=== PATIENT | male | born 1960 | race Caucasian/White ===

== ENCOUNTER 2019-02-21 23:40 | Inpatient (IN) | payer OTHER ==
--- NOTE | 2019-02-22 00:33 | PDOC ---
Attending Attestation - Resident Resident Name: Kyaw Delgadillo - ED Attending Attestation I have performed the following: I have examined & evaluated the patient, The case was reviewed & discussed with the resident, I agree w/resident's findings & plan, Exceptions are as noted - HPI HPI: 02/22/19 00:32 58-year-old male has complaint of worsening chest pain that started this morning resolved and then returned. The pain was getting worse and radiating to his jaw and arm - Physicial Exam PE: 02/22/19 00:33 wnwd 58 yo male p/w chest pain radiating to his arm and jaw head ncat neck supple,no bruits,no jvd lungs cta b/l cvs [id number] abd nontender no flank pain skin warm and dry neuro axox3,ambulatory - Medical Decision Making 02/22/19 00:38 family h/o early cardiac demise of father(40s) Risk factors: htn,IDDM,middle age male plan : aspirin, cardiac enzymes,cbc,comp 02/22/19 00:57 02/22/19 01:04 Medications he takes Toujeo 35 units at nighttime, metformin 500 mg twice daily , Lipitor 10 units at nighttime, 81 baby aspirin daily, nifedipine 90 mg once daily, Ozempic 0.5 sq once weekly 02/22/19 01:20 02/22/19 01:22 first trop is negative cxr napd cbc and chemstries unremarakble with exception [id number] 02/22/19 01:23 plan OBs tele 02/22/19 01:24
--- NOTE | 2019-02-22 00:36 | PDOC ---
History of Present Illness - General Chief Complaint: Chest Pain Stated Complaint: CHEST PAIN Time Seen by Provider: 02/22/19 00:05 - History of Present Illness Initial Comments: 02/22/19 00:31 58 yo M PMH HTN, HLD, IDDM, presenting with chest pain. Patient reports sternal pressure first at 0930, but only lasted 30 seconds initially. However, patient then climbed two flights of stairs to his house and had return of pain. Pain has been worsening through the day, now is radiating into L arm and jaw, 10. Patient never felt this type of pain before. No history of ID or stroke in the past. Specifically denies SOB, N/V, diaphoresis. Past History - Past Medical History Allergies/Adverse Reactions: Allergies Allergy/AdvReac Type Severity Reaction Status Date / Time No Known Allergies Allergy Verified 02/22/19 00:16 Home Medications: Ambulatory Orders Aspirin [ASA -] 81 mg PO DAILY 06/03/14 Atorvastatin Ca [Lipitor] 10 mg PO HS #30 tablet 06/05/14 Insulin Glargine,Hum.rec.anlog [Toujeo Solostar] 35 unit SQ HS 02/22/19 Metformin HCl [Glucophage] 500 mg PO 02/22/19 Nifedipine [Nifedipine ER] 90 mg PO 02/22/19 Semaglutide [Ozempic] 0.5 mg SQ WEEKLY 02/22/19 COPD: No Diabetes: Yes (IDDM) HTN: Yes Hypercholesterolemia: Yes - Surgical History Orthopedic Surgery: Yes (R ROTATOR CUFF) - Immunization History Td Vaccination: Yes TDAP Vaccination: No Immunization Up to Date: Yes - Psycho Social/Smoking Cessation Hx Smoking History: Never smoked Have you smoked in the past 12 months: No Information on smoking cessation initiated: No Hx Alcohol Use: No Drug/Substance Use Hx: No *Physical Exam - Vital Signs Last Vital Signs Temp Pulse Resp BP Pulse Ox 97.8 F 115 H 23 H 117/90 98 02/21/19 23:50 02/21/19 23:50 02/21/19 23:50 02/21/19 23:50 02/21/19 23:50 - Physical Exam Comments: 02/22/19 00:54 Gen: well-developed, well-nourished, mild distress Neuro: AAOX4, CN II-XII intact, FTN intact, EOMI, PERRLA, 5/5 strength, SILT HEENT: atraumatic, normocephalic Neck: trachea midline, supple CV: tachycardic, regular rhythm, no murmurs, rubs, or gallops Pulm: CTA b/l, no wheezing Abd: soft, non-distended, non-tender MSK: full ROM, intact pulses Extr: no edema, no deformities Skin: warm, dry Heart Score/ECG Review - History History: Moderately suspicious - Electrocardiogram EKG: Non specific repolarization disturbance - Age Age: 45-65 - Risk Factors Risk Factors Heart Score: Yes Hx Hypercholesterolemia, Yes Hx Hypertension, Yes Hx Diabetes, Yes Positive family hx of cardiac disease, Yes Hx Obesity Based on the list above the patient has:: >/=3 risk factors or Hx atherosclerotic disease - Troponin Troponin: </= normal limit - Score Heart Score - Total: 5 ED Treatment Course - LABORATORY CBC & Chemistry Diagram: 02/22/19 00:30 02/22/19 00:30 - ADDITIONAL ORDERS Additional order review: Laboratory Results 02/22/19 02/22/19 02/22/19 00:30 00:30 00:30 PT with INR 12.90 INR 1.09 PTT (Actin FS) Sodium 139 Potassium 3.6 Chloride 103 Carbon Dioxide 27 Anion Gap 9 BUN 15.9 Creatinine 1.2 Est GFR (CKD-EPI)AfAm 77.33 Est GFR (CKD-EPI)NonAf 66.72 Random Glucose 282 H Calcium 9.0 Phosphorus 3.0 Magnesium 1.9 Total Bilirubin 0.4 AST 24 ALT 31 Alkaline Phosphatase 94 Troponin I 0.02 Total Protein 7.8 Albumin 3.9 02/22/19 00:30 PT with INR INR PTT (Actin FS) 29.3 Sodium Potassium Chloride Carbon Dioxide Anion Gap BUN Creatinine Est GFR (CKD-EPI)AfAm Est GFR (CKD-EPI)NonAf Random Glucose Calcium Phosphorus Magnesium Total Bilirubin AST ALT Alkaline Phosphatase Troponin I Total Protein Albumin 02/22/19 00:30 RBC 4.77 MCV 82.4 MCHC 33.2 RDW 14.5 MPV 8.5 Neutrophils % 66.2 D Lymphocytes % 28.0 Monocytes % 4.8 Eosinophils % 0.3 D Basophils % 0.7 - RADIOLOGY Radiology Studies Ordered: Category Date Time Status CHEST X-RAY PORTABLE* [RAD] Stat Radiology 02/22/19 00:22 Taken - Medications Given in the ED: ED Medications Discontinued Medications Generic Name Dose Route Start Last Admin Trade Name Rolando PRN Reason Stop Dose Admin Aspirin 325 mg 02/22/19 00:40 02/22/19 00:45 Asa - PO 02/22/19 00:41 325 mg ONCE ONE Administration Medical Decision Making - Medical Decision Making 02/22/19 00:33 58 yo M with risk factors, presenting with chest pain. - CBC, CMP, trop - EKG - CXR - ctm EKG normal sinus at 113 bpm, ST depressions in V4 and V5 not present in prior. 02/22/19 01:29 WBC 13, initial trop negative, CXR without acute pathology. Will admit patient to tele obs. Discharge - Discharge Information Problems reviewed: Yes Clinical Impression/Diagnosis: Chest pain - Follow up/Referral Referrals: Fariba Victor [Primary Care Provider] - - Patient Discharge Instructions - Post Discharge Activity
[2019-02-22 00:40] LABS: BASO % 0.7 % (0-2.0); EOS % 0.3 % (0-4.5); HEMATOCRIT 39.3 % (35.4-49); MCH 27.3 pg (25.7-33.7); MCHC 33.2 g/dl (32.0-35.9); MEAN CELL VOLUME 82.4 fl (80-96); MEAN PLT VOLUME 8.5 fl (7.5-11.1); MONO % 4.8 % (3.8-10.2); NEUT % 66.2 % (42.8-82.8); PLATELET COUNT 311 K/MM3 (134-434); RBC 4.77 M/mm3 (4.00-5.60); RDW 14.5 % (11.9-15.9)
[2019-02-22] MEDS ORDERED: ASPIRIN 325 MG TABLET PO ONE (00:40)
[2019-02-22] MEDS ORDERED: ASPIRIN 325 MG ENTERIC COATED TABLET (FP) ONE (00:44)
[2019-02-22 01:04] LABS: INR 1.09 (0.83-1.09); PROTHROMBIN TIME (PATIENT) 12.9 SEC (9.7-13.0)
[2019-02-22 01:19] LABS: MAGNESIUM 1.9 mg/dL (1.8-2.4)
[2019-02-22 01:21] LABS: ALBUMIN 3.9 g/dl (3.4-5.0); BILIRUBIN,TOTAL 0.4 mg/dL (0.2-1); BLOOD UREA NITROGEN 15.9 mg/dL (7-18); CREATININE 1.2 mg/dL (0.55-1.3); POTASSIUM 3.6 mmol/L (3.5-5.1); TOT PROT 7.8 g/dl (6.4-8.2)
--- NOTE | 2019-02-22 02:29 | PN ---
Teaching Attending Note Name of Resident: Shannon Edward ATTENDING PHYSICIAN STATEMENT I saw and evaluated the patient. I reviewed the resident's note and discussed the case with the resident. I agree with the resident's findings and plan as documented. SUBJECTIVE: 58-year-old man with history of hypertension, dyslipidemia, insulin-dependent diabetes presenting with chest pain which started at 9:30 AM and lasted only a minute, returned after he was climbing a flight of stairs. Pain has worsened throughout the day and radiates to left arm and jaw. Currently chest pain has improved. Denied any shortness of breath, nausea or vomiting, or excessive sweating. Patient's father was reported to have CABG performed at age 52. OBJECTIVE: Last Vital Signs Temp Pulse Resp BP Pulse Ox 97.8 F 80 16 120/74 96 02/21/19 23:50 02/22/19 02:08 02/22/19 02:08 02/22/19 02:08 02/22/19 02:08 GENERAL: Well developed, well nourished. Awake and alert. No acute distress. HEENT: Normocephalic, atraumatic. PERRLA, EOMI. No conjunctival pallor. Sclera are non- icteric. Moist mucous membranes. Oropharynx is clear. NECK: Supple. Full ROM. No JVD. Carotid pulses 2+ and symmetric, without bruits. No thyromegaly. No lymphadenopathy. CARDIOVASCULAR: Regular rate and rhythm. No murmurs, rubs, or gallops. Distal pulses are 2+ and symmetric. PULMONARY: No evidence of respiratory distress. Lungs clear to auscultation bilaterally. No wheezing, rales or rhonchi. ABDOMINAL: Soft. Non-tender. Non-distended. No rebound or guarding. No organomegaly. Normoactive bowel sounds. MUSCULOSKELETAL Normal range of motion at all joints. No bony deformities or tenderness. No CVA tenderness. EXTREMITIES: No cyanosis. No clubbing. No edema. No calf tenderness. SKIN: Warm and dry. Normal capillary refill. No rashes. No jaundice. PSYCHIATRIC: Cooperative. Good eye contact. Appropriate mood and affect. Abnormal Lab Results 02/22/19 02/22/19 00:30 00:30 WBC 13.0 H Absolute Neuts (auto) 8.6 H Random Glucose 282 H Chest x-ray reviewed EKG reviewed ASSESSMENT AND PLAN: Chest painappears to be stable angina, was worse with physical exertion.Patient is at high risk for CAD given his positive family history. Telemetry observation Trend troponins Echo Cardiac stress test Supplemental oxygen as needed Cardiology evaluation Nitroglycerin as needed if recurrent chest pain #Leukocytosisno source of infection identified Monitor CBC off antibiotic
--- NOTE | 2019-02-22 03:25 | HP ---
CHIEF COMPLAINT: Chest Pain PCP: Dr. Victor HISTORY OF PRESENT ILLNESS: Pt is a 58 y/o M w/ pmhx of HTN, Type 2 DM, and hyperlipedimia presenting to ED with chest pain that began yesterday morning. Pt reports he first experienced a chest pain yesterday morning around 9am when going up the stairs which improved with rest. Later he experienced similar chest pain while walking to mail box and the pain improved with rest. At night while resting, the pt experienced worsening tightening and pressure like chest pain with radiation to L arm and his jaw. The patient tried to take a baby aspirin but the pain did not resolve. Pt rates pain as 5-6/10. Pt also experienced CLAYTON. Pt denies SOB, fever, chills, palpitations, changes in vision, abd pain, urinary changes or bowel changes. Pt reports he stopped taking Aspirin 81mg a few months ago as recommended by one of his doctors, does not recall why. He curretly takes no antiplatelet medication. Pt had unremarkable ECHO and Stress test in 2014. Fhx: Mother: DM; Father: Stoke, Triple Bypass, DM, HTN, and Hyperlipedemia ER course was notable for: (1) ASA 325 x1 (2) EKG with sinus tachycardia (115) ST depressions in v4, v5, QTc 445 (3) Troponin negative X1 Recent Travel: denies PAST MEDICAL HISTORY: HTN, Type 2 DM, Hyperlipedimia PAST SURGICAL HISTORY: 2 L shoulder arthroscopy, 1 L shoulder arthroscopy, R inguinal hernia repair, and removal of 2 cysts on his back Social History: Smoking: denies Alcohol: socially Drugs: denies Occupation: OR nurse Residence: Lives with , 2 children and 1 grandchild Allergies Latex- pt reports it gives him hives HOME MEDICATIONS: Home Medications Medication Instructions Recorded Aspirin [ASA -] 81 mg PO DAILY 06/03/14 Atorvastatin Ca [Lipitor] 10 mg PO HS #30 tablet 06/05/14 Insulin Glargine,Hum.rec.anlog 35 unit SQ HS 02/22/19 [Mahesh Marie] Metformin HCl [Glucophage] 500 mg PO DAILY 02/22/19 Nifedipine [Nifedipine ER] 90 mg PO DAILY 02/22/19 Semaglutide [Ozempic] 0.5 mg SQ WEEKLY 02/22/19 REVIEW OF SYSTEMS CONSTITUTIONAL: Absent: fever, chills, diaphoresis, generalized weakness, malaise, loss of appetite, weight change HEENT: Absent: rhinorrhea, nasal congestion, throat pain, throat swelling, difficulty swallowing, mouth swelling, ear pain, eye pain, visual changes CARDIOVASCULAR: chest pain- with exertion and with rest, tachycardia (pt says she measured his HR and BP prior to coming to hospital, reports it was 118 and 124/70), cp radiates to L arm and jaw Absent: , syncope, palpitations, irregular heart rate, lightheadedness, peripheral edema RESPIRATORY: Absent: cough, shortness of breath, dyspnea with exertion, orthopnea, wheezing, stridor, hemoptysis GASTROINTESTINAL: Absent: abdominal pain, abdominal distension, nausea, vomiting, diarrhea, constipation, melena, hematochezia GENITOURINARY: Absent: dysuria, frequency, urgency, hesitancy, hematuria, flank pain, genital pain MUSCULOSKELETAL: Absent: myalgia, arthralgia, joint swelling, back pain, neck pain SKIN: Absent: rash, itching, pallor HEMATOLOGIC/IMMUNOLOGIC: Absent: easy bleeding, easy bruising, lymphadenopathy, frequent infections ENDOCRINE: Absent: unexplained weight gain, unexplained weight loss, heat intolerance, cold intolerance NEUROLOGIC: headache, Absent: focal weakness or paresthesias, dizziness, unsteady gait, seizure, mental status changes, bladder or bowel incontinence PSYCHIATRIC: Absent: anxiety, depression, suicidal or homicidal ideation, hallucinations. PHYSICAL EXAMINATION Vital Signs - 24 hr 02/21/19 02/22/19 02/22/19 23:50 02:08 03:06 Temperature 97.8 F Pulse Rate 115 H Pulse Rate [ 80 Radial] Respiratory 23 H 16 Rate Blood Pressure 117/90 Blood Pressure 120/74 [Right Arm] O2 Sat by Pulse 98 96 96 Oximetry (%) GENERAL: Awake, alert, and fully oriented, in no acute distress. HEAD: Normal with no signs of trauma. EYES: Pupils equal, round and reactive to light, extraocular movements intact, sclera anicteric, conjunctiva clear. No lid lag. EARS, NOSE, THROAT: Ears normal, nares patent, oropharynx clear without exudates. Moist mucous membranes. NECK: Normal range of motion, supple without lymphadenopathy, JVD, or masses. LUNGS: Breath sounds equal, clear to auscultation bilaterally. No wheezes, and no crackles. No accessory muscle use. HEART: Regular rate and rhythm, normal S1 and S2 without murmur, rub or gallop. ABDOMEN: Soft, nontender, not distended, normoactive bowel sounds, no guarding, no rebound, no masses. No hepatomegaly or splenomegaly. MUSCULOSKELETAL: Normal range of motion at all joints except L shoulder which had decreased ROM and weakness compared to right, pt states its chronic. No bony deformities or tenderness. No CVA tenderness. UPPER EXTREMITIES: 2+ pulses, warm, well-perfused. No cyanosis. No clubbing. No peripheral edema. LOWER EXTREMITIES: 2+ pulses, warm, well-perfused. No calf tenderness. No peripheral edema. NEUROLOGICAL: Cranial nerves II-XII intact. Normal speech. PSYCHIATRIC: Cooperative. Good eye contact. Appropriate mood and affect. SKIN: Warm, dry, normal turgor, no rashes or lesions noted, normal capillary refill. Laboratory Results - last 24 hr 02/22/19 02/22/19 02/22/19 00:30 00:30 00:30 WBC 13.0 H RBC 4.77 Hgb 13.0 Hct 39.3 MCV 82.4 MCH 27.3 MCHC 33.2 RDW 14.5 Plt Count 311 MPV 8.5 Absolute Neuts (auto) 8.6 H Neutrophils % 66.2 D Lymphocytes % 28.0 Monocytes % 4.8 Eosinophils % 0.3 D Basophils % 0.7 Nucleated RBC % 0 PT with INR INR PTT (Actin FS) 29.3 Sodium 139 Potassium 3.6 Chloride 103 Carbon Dioxide 27 Anion Gap 9 BUN 15.9 Creatinine 1.2 Est GFR (CKD-EPI)AfAm 77.33 Est GFR (CKD-EPI)NonAf 66.72 POC Glucometer Random Glucose 282 H Calcium 9.0 Phosphorus Magnesium Total Bilirubin 0.4 AST 24 ALT 31 Alkaline Phosphatase 94 Troponin I Total Protein 7.8 Albumin 3.9 02/22/19 02/22/19 02/22/19 00:30 00:30 02:51 WBC RBC Hgb Hct MCV MCH MCHC RDW Plt Count MPV Absolute Neuts (auto) Neutrophils % Lymphocytes % Monocytes % Eosinophils % Basophils % Nucleated RBC % PT with INR 12.90 INR 1.09 PTT (Actin FS) Sodium Potassium Chloride Carbon Dioxide Anion Gap BUN Creatinine Est GFR (CKD-EPI)AfAm Est GFR (CKD-EPI)NonAf POC Glucometer 197 Random Glucose Calcium Phosphorus 3.0 Magnesium 1.9 Total Bilirubin AST ALT Alkaline Phosphatase Troponin I 0.02 Total Protein Albumin ASSESSMENT/PLAN: Pt is a 58 y/o M w/ pmhx of HTN, Type 2 DM, and hyperlipedimia presenting to ED with chest pain that began yesterday morning, both with exertion and now at rest. Pain is radiating to his L arm and jaw. # CP- pt reports pain both with exertion and at rest, consistent with unstable angina. Pt is at high risk for CAD given family history. Initial troponin in ED negative. - Tele obs - ASA 81 daily - trend troponins - A1C, TSH, Lipid panel - echo - Cardiology consultation, Dr. Campos, appreciate recommendations - consider stress test - NPO incase pt to go for stress test tomorrow - supplemental O2 PRN - nitroglycerin prn for recurrent CP # Leukocytosis- pt without source of infection, not currently complaining of any symptoms aside from CP - monitor CBC off abx #DM - BGM ACHS - ISS #FEN -no fluids for now - replete PRN - NPO until decision made about stress test then low fat/ low sodium/ diabetic diet #PPx - DVT: Heparin TID # Dispo: admit to tele obs, possibly stress test in AM Visit type - Emergency Visit Emergency Visit: Yes ED Registration Date: 02/22/19 Care time: The patient presented to the Emergency Department on the above date and was hospitalized for further evaluation of their emergent condition. - New Patient This patient is new to me today: Yes Date on this admission: 02/22/19 - Critical Care Critical Care patient: No ATTENDING PHYSICIAN STATEMENT I saw and evaluated the patient. I reviewed the resident's note and discussed the case with the resident. I agree with the resident's findings and plan as documented. SUBJECTIVE: OBJECTIVE: ASSESSMENT AND PLAN:
[2019-02-22 05:13] VITALS: BMI 30.9
[2019-02-22] MEDS ORDERED: HEPARIN NA (PORCINE) 5,000 UNITS/ML 1ML VIAL SQ SCH (06:00)
[2019-02-22] MEDS: INSULIN SLIDING SCALE (NOVOLOG) 1 VIAL SQ SCH ×4 (06:04→22:35)
[2019-02-22 06:28] LABS: BASO % 0.4 % (0-2.0); EOS % 0.2 % (0-4.5); HEMATOCRIT 37.2 % (35.4-49); HEMOGLOBIN 12.7 GM/dL (11.7-16.9); LYMPH % 36.2 % (8-40); MCH 27.9 pg (25.7-33.7); MCHC 34.2 g/dl (32.0-35.9); MEAN CELL VOLUME 81.6 fl (80-96); MEAN PLT VOLUME 8.3 fl (7.5-11.1); MONO % 5.1 % (3.8-10.2); NEUT % 58.1 % (42.8-82.8); PLATELET COUNT 299 K/MM3 (134-434); RBC 4.55 M/mm3 (4.00-5.60); RDW 14.4 % (11.9-15.9); WHITE BLOOD COUNT 10.3 K/mm3 (4.0-10.0)
[2019-02-22 07:21] LABS: ALBUMIN 3.7 g/dl (3.4-5.0); BILIRUBIN,TOTAL 0.9 mg/dL (0.2-1); BLOOD UREA NITROGEN 14.8 mg/dL (7-18); CALCIUM 9.1 mg/dL (8.5-10.1); MAGNESIUM 2.1 mg/dL (1.8-2.4); PHOSPHOROUS 3.7 mg/dL (2.5-4.9); POTASSIUM 3.4 mmol/L (3.5-5.1); TOT PROT 7.4 g/dl (6.4-8.2)
[2019-02-22] MEDS ORDERED: HEPARIN NA (PORCINE) 5,000 UNITS/ML 1ML VIAL IVPUSH PRN ×2 (07:44)
[2019-02-22] MEDS ORDERED: HEPARIN NA (PORCINE) 5,000 UNITS/ML 1ML VIAL IVPUSH ONE (07:46)
[2019-02-22] MEDS: HEPARIN - 25,000 UNIT in SODIUM CHLORIDE 495 ML IV SCH (08:22)
[2019-02-22] MEDS: ASPIRIN 81 MG CHEWABLE TABLETS PO SCH (09:15)
--- NOTE | 2019-02-22 09:23 | EKG ---
Test Reason : Blood Pressure : / mmHG Vent. Rate : 071 BPM Atrial Rate : 071 BPM P-R Int : 178 ms QRS Dur : 090 ms QT Int : 420 ms P-R-T Axes : 038 -16 -02 degrees QTc Int : 456 ms NORMAL SINUS RHYTHM NORMAL ECG WHEN COMPARED WITH ECG OF 22-FEB-2019 08:10, NO SIGNIFICANT CHANGE WAS FOUND Confirmed by MD Kohli Edward ([id number]) on 02/22/2019 9:22:43 AM Referred By[facility] Confirmed By:Matt Kohli MD
[2019-02-22] MEDS ORDERED: LISINOPRIL 5 MG TABLET (FP) PO SCH (10:00)
[2019-02-22] MEDS: metoPROLOL SUCCINATE 25 MG TAB.SR.24H (FP) PO SCH ×2 (10:14→22:35)
[2019-02-22] MEDS: LOSARTAN POTASSIUM 50 MG TABLET (FP) PO SCH (10:14)
[2019-02-22] MEDS: CLOPIDOGREL BISULFATE 75 MG TABLET (FP) PO SCH (10:14)
--- NOTE | 2019-02-22 10:53 | CON.CARD ---
Consult Consult Specialty:: cardiology Reason for Consultation:: NSTEMI - History of Present Illness History of Present Illness: 58 yo M PMH HTN, HLD, IDDM, presenting with chest pain. Patient reports sternal pressure first at 0930, but only lasted 30 seconds initially. However, patient then climbed two flights of stairs to his house and had return of pain. Pain has been worsening through the day, now is radiating into L arm and jaw, 09/27. Patient never felt this type of pain before. No history of UT or stroke in the past. Specifically denies SOB, N/V, diaphoresis. He is on Axempic weekly injection for DM, as well as insulin. Seveal years ago, he contemplated gastric bypass surgery; eventually, he lost 25 lbs on his own without the procedure. He walks several blocks most days at a moderate pace, and walks a few flights of stairs daily. He had had not chest heaviness or pain until this weekend. His dod had Thursday. On Thursday, he felt depressed. Wlaking up the stairs at home, he had mild central chest heaviness that caused him to sit down after one fligth; it went away after a few minutes. It recurred in the afternoon while climbing stairs, then became moderately severe that night while again gong upstairs, with extension to the jaw and left arm; the pain did not go awasy when he rested, and he then was driven by his the the [facility]. 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 - History Source History Provided By: Patient, Medical Record Limitations to Obtaining History: No Limitations - Past Medical History Cardio/Vascular: Yes: HTN, Hyperlipdemia, Other (father had UT in his 40s) - Past Surgical History Additional Surgical History: 2 cysts removed from his back - Alcohol/Substance Use Hx Alcohol Use: Yes - Smoking History Smoking history: Never smoked Have you smoked in the past 12 months: No Home Medications - Allergies Allergies/Adverse Reactions: Allergies Allergy/AdvReac Type Severity Reaction Status Date / Time No Known Allergies Allergy Verified 02/22/19 00:16 - Home Medications Home Medications: Ambulatory Orders Aspirin [ASA -] 81 mg PO DAILY 06/03/14 Atorvastatin Ca [Lipitor] 10 mg PO HS #30 tablet 06/05/14 Insulin Glargine,Hum.rec.anlog [Mahesh Marie] 35 unit SQ HS 02/22/19 Metformin HCl [Glucophage] 500 mg PO DAILY 02/22/19 Nifedipine [Nifedipine ER] 90 mg PO DAILY 02/22/19 Semaglutide [Ozempic] 0.5 mg SQ WEEKLY 02/22/19 Family Medical History Family Hx Cardiac Disorders: Father (CVA; CABG in his 50s; age 57) Vital Signs: Vital Signs Temperature 98.4 F 02/22/19 08:00 Pulse Rate 75 02/22/19 08:00 Respiratory Rate 18 02/22/19 08:45 Blood Pressure 157/94 02/22/19 08:00 O2 Sat by Pulse Oximetry (%) 97 02/22/19 08:45 - Other Data Labs, Other Data: CBC, BMP 02/22/19 05:20 02/22/19 05:20 INR, PTT INR 1.09 (0.83-1.09) 02/22/19 00:30 Troponin, BNP 02/22/19 02/22/19 00:30 05:20 Troponin I 0.02 1.91 H* Troponin, BNP 02/22/19 02/22/19 00:30 05:20 Troponin I 0.02 1.91 H* Problem List - Problems (1) NSTEMI (non-ST elevated myocardial infarction) Assessment/Plan: TNI 0.02-->1.2. EKG: sinus tachycardia. Telemetry: NSR; rare PVCs. Plan: Agree with metoprolol ACEI (or ARB), ASA, high dose atorvastatin (80 mg daily); IV heparin. Pt had been on meloxicam; was told to avoid all non-aspirin NSAIDs. Ideally start an SGLP-2 inhibitor for DM (e.g. Jardience). Follow EKG and TNI serally. ECHO for LVEF, wall motion, valve status. Keep K>3.5--4.5 Keep Mg 2.0-2.4 Keep PO4 2.5-4.9. Code(s): I21.4 - NON-ST ELEVATION (NSTEMI) MYOCARDIAL INFARCTION (2) Diabetes Assessment/Plan: start SGLP 2 inhibitor. On ARB. Code(s): E11.9 - TYPE 2 DIABETES MELLITUS WITHOUT COMPLICATIONS (3) Hyperlipidemia Code(s): E78.5 - HYPERLIPIDEMIA, UNSPECIFIED (4) Hypertension Code(s): I10 - ESSENTIAL (PRIMARY) HYPERTENSION (5) Obese Code(s): E66.9 - OBESITY, UNSPECIFIED
--- NOTE | 2019-02-22 11:26 | EKG ---
Test Reason : Blood Pressure : / mmHG Vent. Rate : 115 BPM Atrial Rate : 115 BPM P-R Int : 168 ms QRS Dur : 082 ms QT Int : 322 ms P-R-T Axes : 044 012 077 degrees QTc Int : 445 ms SINUS TACHYCARDIA NONSPECIFIC ST AND T WAVE ABNORMALITY ABNORMAL ECG WHEN COMPARED WITH ECG OF 29-JUL-2017 08:45, VENT. RATE HAS INCREASED BY [address] NOW DEPRESSED IN ANTEROLATERAL LEADS Confirmed by Ric Coley MD ([id number]) on 02/22/2019 11:26:10 AM Referred By: Confirmed By:Ric Coley MD
[2019-02-22] MEDS ORDERED: POTASSIUM CHLORIDE ORAL LIQUID 20 MEQ/15 ML PO ONE (11:45)
--- NOTE | 2019-02-22 13:16 | PN ---
Teaching Attending Note Name of Resident: Sobeida Trevino ATTENDING PHYSICIAN STATEMENT I saw and evaluated the patient. I reviewed the resident's note and discussed the case with the resident. I agree with the resident's findings and plan as documented. SUBJECTIVE: No fever or chills. no CLAYTON , no CP , no SOB, no N/V. No palpitations . he was told to stop aspirin 3 months ago. never had a GI bleed OBJECTIVE: NAD, MMM, awake, alert, oriented CV: RRR, no MRG, No JVD Lungs: CATB Abd: soft, NT, ND, NL BS. Neg hepatojugular reflux Ext: no edema or erythema on upper or lower extremities. ASSESSMENT AND PLAN: 58 y/o gentleman with h/o HTN, DM , HLP, who presented with CP and was found to have NSTEMI 1- NSTEMI: No signs of heart failure. - started heparin gtt - start Lopressor and resume home losartan - aspirin daily - add plavix. - tele monitoring. - cont statin - EKG from ER and one in am reviewed. NO ST or TW changes. L axis. deviation - Old stress and echo reviewed. fixed small inferior area. Cath was recommended then. - case was d/w Dr. Simental, depending on his next trop , he might be transferred tomorrow for a cath. 2- H/o DM: on long acting insulin q HS and Semiglutide weekly. - cont SSI here. sugar on lower side - Hold long acting since he might be NPO tomorrow . sugar is low - Consider Invokana or other SGLT-2 inhibitor as outpt 3- H/o HTn: cont losartan , and now metoprolol hold HCTZ. Resume nifedipine if needed 4- DVT pX: on heparin gtt
--- NOTE | 2019-02-22 13:43 | EKG ---
Test Reason : Blood Pressure : / mmHG Vent. Rate : 069 BPM Atrial Rate : 069 BPM P-R Int : 178 ms QRS Dur : 086 ms QT Int : 414 ms P-R-T Axes : 037 -18 -04 degrees QTc Int : 443 ms NORMAL SINUS RHYTHM MINIMAL VOLTAGE CRITERIA FOR LVH, MAY BE NORMAL VARIANT BORDERLINE ECG WHEN COMPARED WITH ECG OF 22-FEB-2019 08:11, NO SIGNIFICANT CHANGE WAS FOUND Confirmed by MD Rishi, Federico ([id number]) on 02/22/2019 1:42:53 PM Referred By: Ela COATES Confirmed By:Federico Blackwell MD
--- NOTE | 2019-02-22 14:17 | PN ---
Physical Exam: SUBJECTIVE: Patient seen and examined in the morning. No acute events overnight. Patient had no complaints of chest pain, shortness of breath, headache, fever, chills, abdominal pain, nausea, vomiting, diarrhea. OBJECTIVE: Vital Signs Period Temp Pulse Resp BP Sys/Medel Pulse Ox Last 24 Hr 97.8 F-98.5 F 75-115 16-23 117-157/74-94 95-98 GENERAL: The patient is awake, alert, and fully oriented, in no acute distress. HEAD: Normal with no signs of trauma. EYES: PERRL, extraocular movements intact, sclera anicteric, conjunctiva clear. No ptosis. ENT: Moist mucous membranes. NECK: Trachea midline, full range of motion, supple. LUNGS: Breath sounds equal, clear to auscultation bilaterally, no wheezes. HEART: Regular rate and rhythm, S1, S2 without murmur, rub or gallop. ABDOMEN: Soft, nontender, nondistended, normoactive bowel sounds, no guarding, no rebound. EXTREMITIES: 2+ pulses in upper and lower extremities, warm, well-perfused, no edema. NEUROLOGICAL: Cranial nerves II through XII grossly intact. Normal speech Laboratory Results - last 24 hr CBC, BMP 02/22/19 05:20 02/22/19 05:20 Active Medications Generic Name Dose Route Start Last Admin Trade Name Freq PRN Reason Stop Dose Admin Aspirin 81 mg 02/22/19 10:00 02/22/19 09:15 Asa - PO 81 mg DAILY [facility] Administration Atorvastatin Calcium 80 mg 02/22/19 22:00 Lipitor - PO HS [facility] Clopidogrel Bisulfate 75 mg 02/22/19 10:00 02/22/19 10:14 Plavix - PO 75 mg DAILY [facility] Administration Heparin Sodium (Porcine) 1,000 unit 02/22/19 07:44 Heparin - IVPUSH PRN PRN Heparin Heparin Sodium (Porcine) 5,000 unit 02/22/19 07:44 Heparin - IVPUSH PRN PRN Heparin Heparin Sodium (Porcine) 25, 500 mls @ 20 mls/hr 02/22/19 08:30 02/22/19 08: 22 000 unit/ Sodium Chloride IV 1,000 unit/hr TITR [facility] 20 mls/hr Administration Protocol 1,000 UNIT/HR Insulin Aspart 1 vial 02/22/19 07:00 02/22/19 11:00 Novolog Vial Sliding Scale - SQ Not Given ACHS [facility] Protocol Losartan Potassium 100 mg 02/22/19 10:00 02/22/19 10:14 Cozaar - PO 100 mg DAILY [facility] Administration Metoprolol Succinate 25 mg 02/22/19 10:00 02/22/19 10:14 Toprol Xl - PO 25 mg BID [facility] Administration ASSESSMENT/PLAN: 58 M with PMH of HTN, DM Type 2, HLD, presenting with NSTEMI 1) NSTEMI -Troponin of 1.91 @ 5:20. -Patient started on Heparin drip.Follow up PTT -Plavix 75 mg PO Qdaily -Metoprolol 25 mg PO BID -Losartan 100 mg PO Daily -ASA 81 mg PO Daily -F/U Echo -No stress test, possible catherization -Continue telemetry monitoring. -Cardiology consulted, appreciate recs. Will transfer for Cath tomorrow. 2) Leukocytosis -Patient's admission CBC showed WBC of 13, repeat showed 10. -No source of infection, patient afebrile and not complaining of any symptoms. Will continue to monitor 3)DM -Patient's last HbA1c was 7.4. -Sliding Scale Insulin 4)HLD -Atorvastatin 80 mg PO HS F: No fluids E: Monitor BMP N: Low fat/sodium/diabetic diet DVT Prophylaxis: Patient on Heparin Drip Dispo: Admitted to telemetry. Transfer tomorrow. Visit type - Emergency Visit Emergency Visit: Yes ED Registration Date: 02/22/19 Care time: The patient presented to the Emergency Department on the above date and was hospitalized for further evaluation of their emergent condition. - New Patient This patient is new to me today: No - Critical Care Critical Care patient: No ATTENDING PHYSICIAN STATEMENT I saw and evaluated the patient. I reviewed the resident's note and discussed the case with the resident. I agree with the resident's findings and plan as documented. SUBJECTIVE: OBJECTIVE: ASSESSMENT AND PLAN:
--- NOTE | 2019-02-22 16:14 | ECHO ---
Name: SOHAIL MILLAN Exam:Adult Echocardiogram Study Date: 02/22/2019 01:32 PM Age: 58 yrs Height: 66 in Weight: 185 lb BSA: 1.9 m2 MMode/2D Measurements & Calculations IVSd: 0.87 cm Ao root diam: 3.5 cm LVIDd: 4.8 cm LA dimension: 4.1 cm LVIDs: 2.9 cm ACS: 2.1 cm LVPWd: 0.82 cm IVSs: 1.3 cm LVPWs: 1.2 cm EDV(Teich): 109.4 ml ESV(Teich): 33.3 ml Doppler Measurements & Calculations MV E max feroz: 68.9 cm/sec Ao V2 max: 122.6 cm/sec MV A max feroz: 64.8 cm/sec Ao max P.0 mmHg MV E/A: 1.1 Ao V2 mean: 87.2 cm/sec Ao mean P.4 mmHg Ao V2 VTI: 22.4 cm MR max feroz: 402.6 cm/sec TR max feroz: 185.9 cm/sec MR max P.8 mmHg TR max P.9 mmHg Med Peak E' Feroz: 6.4 cm/sec Med E/e': 10.8 Lat Peak E' Feroz: 7.0 cm/sec Lat E/e': 9.8 Left Ventricle Mild LVH Normal LV function EF 63%. Right Ventricle The right ventricle is grossly normal size. The right ventricular systolic function is normal. Atria Mild to moderate Left atrial enlargment Normal right atrial size. Mitral Valve The mitral valve is normal. There is mild mitral regurgitation. Tricuspid Valve The tricuspid valve is not well visualized, but is grossly normal. There is mild tricuspid regurgitat ion. Aortic Valve The aortic valve is normal in structure and function. Pulmonic Valve The pulmonic valve is not well seen, but is grossly normal. Great Vessels The aortic root is normal size. Pericardium/Pleura There is no pericardial effusion. Interpretation Summary Mild LVH Normal LV function EF 63% The right ventricle is grossly normal size. The right ventricular systolic function is normal. The mitral valve is normal. There is mild mitral regurgitation. The tricuspid valve is not well visualized, but is grossly normal. There is mild tricuspid regurgitation. The aortic valve is normal in structure and function. The pulmonic valve is not well seen, but is grossly normal. The aortic root is normal size. There is no pericardial effusion. Mild to moderate Left atrial enlargment Normal right atrial size MD Federico Blackwell 02/22/2019 04:14 PM
[2019-02-22] MEDS ORDERED: ATORVASTATIN CA 40 MG TABLET (FP) PO SCH (22:00)
[2019-02-22] MEDS: ATORVASTATIN CA 40 MG TABLET (FP) PO SCH (22:35)
[2019-02-23] MEDS: INSULIN SLIDING SCALE (NOVOLOG) 1 VIAL SQ SCH ×4 (06:16→22:14)
[2019-02-23 07:03] LABS: BASO % 0.6 % (0-2.0); EOS % 0.5 % (0-4.5); HEMATOCRIT 37.4 % (35.4-49); HEMOGLOBIN 12.6 GM/dL (11.7-16.9); LYMPH % 55.2 % (8-40); MCH 27.7 pg (25.7-33.7); MCHC 33.6 g/dl (32.0-35.9); MEAN CELL VOLUME 82.5 fl (80-96); MEAN PLT VOLUME 8.3 fl (7.5-11.1); MONO % 5.3 % (3.8-10.2); NEUT % 38.4 % (42.8-82.8); PLATELET COUNT 286 K/MM3 (134-434); RBC 4.54 M/mm3 (4.00-5.60); RDW 14.3 % (11.9-15.9); WHITE BLOOD COUNT 8.5 K/mm3 (4.0-10.0)
[2019-02-23 07:31] LABS: ALBUMIN 3.5 g/dl (3.4-5.0); BILIRUBIN,TOTAL 0.4 mg/dL (0.2-1); BLOOD UREA NITROGEN 13.2 mg/dL (7-18); CALCIUM 8.7 mg/dL (8.5-10.1); POTASSIUM 3.5 mmol/L (3.5-5.1); TOT PROT 7.2 g/dl (6.4-8.2)
--- NOTE | 2019-02-23 09:16 | PN ---
Teaching Attending Note Name of Resident: Leland Garcia ATTENDING PHYSICIAN STATEMENT I saw and evaluated the patient. I reviewed the resident's note and discussed the case with the resident. I agree with the resident's findings and plan as documented. SUBJECTIVE: Patient is comfortable with no further chest pain. Vital Signs Temperature 98 F 02/23/19 05:56 Pulse Rate 60 02/23/19 05:56 Respiratory Rate 20 02/23/19 08:06 Blood Pressure 153/99 02/23/19 05:56 O2 Sat by Pulse Oximetry (%) 96 02/23/19 08:06 GENERAL: The patient is awake, alert, and fully oriented, in no acute distress. HEAD: Normal with no signs of trauma. EYES: PERRL, extraocular movements intact, sclera anicteric, conjunctiva clear. ENT: Ears normal, oropharynx clear without exudates, moist mucous membranes. NECK: Trachea midline, full range of motion, supple. LUNGS: Breath sounds equal, clear to auscultation bilaterally, no wheezes, no crackles, no accessory muscle use. HEART: Regular rate and rhythm, S1, S2 without murmur, rub or gallop. ABDOMEN: Soft, NT, ND, normoactive bowel sounds, no guarding, no rebound, no hepatosplenomegaly, no masses. EXTREMITIES: 2+ pulses, warm, well-perfused, no edema. NEUROLOGICAL: Cranial nerves II through XII grossly intact. Normal speech, gait not observed. PSYCH: Normal mood, normal affect. SKIN: Warm, dry, normal turgor, no rashes or lesions noted CBCD WBC 8.5 K/mm3 (4.0-10.0) 02/23/19 06:05 RBC 4.54 M/mm3 (4.00-5.60) 02/23/19 06:05 Hgb 12.6 GM/dL (11.7-16.9) 02/23/19 06:05 Hct 37.4 % (35.4-49) 02/23/19 06:05 MCV 82.5 fl (80-96) 02/23/19 06:05 MCHC 33.6 g/dl (32.0-35.9) 02/23/19 06:05 RDW 14.3 % (11.9-15.9) 02/23/19 06:05 Plt Count 286 K/MM3 (134-434) 02/23/19 06:05 MPV 8.3 fl (7.5-11.1) 02/23/19 06:05 CMP Sodium 141 mmol/L (136-145) 02/23/19 06:05 Potassium 3.5 mmol/L (3.5-5.1) 02/23/19 06:05 Chloride 107 mmol/L (98-107) 02/23/19 06:05 Carbon Dioxide 31 mmol/L (21-32) 02/23/19 06:05 Anion Gap 3 MMOL/L (8-16) L 02/23/19 06:05 BUN 13.2 mg/dL (7-18) 02/23/19 06:05 Creatinine 1.0 mg/dL (0.55-1.3) 02/23/19 06:05 Random Glucose 139 mg/dL (74-106) H 02/23/19 06:05 Calcium 8.7 mg/dL (8.5-10.1) 02/23/19 06:05 Total Bilirubin 0.4 mg/dL (0.2-1) 02/23/19 06:05 AST 26 U/L (15-37) 02/23/19 06:05 ALT 35 U/L (13-61) 02/23/19 06:05 Alkaline Phosphatase 77 U/L (45-117) 02/23/19 06:05 Total Protein 7.2 g/dl (6.4-8.2) 02/23/19 06:05 Albumin 3.5 g/dl (3.4-5.0) 02/23/19 06:05 CARDIAC ENZYMES Creatine Kinase 138 U/L (26-308) 02/22/19 13:50 Troponin I 6.99 ng/ml (0.00-0.05) H* 02/22/19 20:10 Current Medications Generic Name Dose Route Start Last Admin Trade Name Rolando PRN Reason Stop Dose Admin Aspirin 81 mg 02/22/19 10:00 02/22/19 09:15 Asa - PO 81 mg DAILY [facility] Administration Atorvastatin Calcium 80 mg 02/22/19 22:00 02/22/19 22:35 Lipitor - PO 80 mg HS [facility] Administration Clopidogrel Bisulfate 75 mg 02/22/19 10:00 02/22/19 10:14 Plavix - PO 75 mg DAILY [facility] Administration Heparin Sodium (Porcine) 1,000 unit 02/22/19 07:44 Heparin - IVPUSH PRN PRN Heparin Heparin Sodium (Porcine) 5,000 unit 02/22/19 07:44 Heparin - IVPUSH PRN PRN Heparin Heparin Sodium (Porcine) 25, 500 mls @ 20 mls/hr 02/22/19 08:30 02/22/19 16: 00 000 unit/ Sodium Chloride IV 950 unit/hr TITR [facility] 19 mls/hr Titration Protocol 1,000 UNIT/HR Insulin Aspart 1 vial 02/22/19 07:00 02/23/19 06:16 Novolog Vial Sliding Scale - SQ Not Given ACHS [facility] Protocol Losartan Potassium 100 mg 02/22/19 10:00 02/22/19 10:14 Cozaar - PO 100 mg DAILY [facility] Administration Metoprolol Succinate 25 mg 02/22/19 10:00 02/22/19 22:35 Toprol Xl - PO 25 mg BID [facility] Administration Home Medications Medication Instructions Recorded Aspirin [ASA -] 81 mg PO DAILY 06/03/14 Atorvastatin Ca [Lipitor] 10 mg PO HS #30 tablet 06/05/14 Baclofen 3 tablet PO TID 02/22/19 Cyclobenzaprine HCl [Flexeril 10 1 tablet PO DAILY 02/22/19 mg] Insulin Glargine,Hum.rec.anlog 35 unit SQ HS 02/22/19 [Touirmao Solostar] Losartan/Hydrochlorothiazide 1 tablet PO DAILY 02/22/19 [Losartan-Hctz 100-25 mg Tab] Meloxicam 15 mg PO DAILY 02/22/19 Metformin HCl [Glucophage] 500 mg PO BID 02/22/19 Nifedipine [Nifedipine ER] 90 mg PO DAILY 02/22/19 Semaglutide [Ozempic] 0.5 mg SQ WEEKLY 02/22/19 ASSESSMENT AND PLAN: Patient is 58 y/o gentleman with PMHx of HTN, DM , HLP, who presented with CP and was found to have NSTEMI # NSTEMI: on heparin gtt , continue Lopressor and home losartan , aspirin daily , plavix. - cont statin . patient is getting transferred for Cath to [facility]. - EKG from ER and one in am reviewed. NO ST or TW changes. L axis. deviation # H/o DM: on long acting insulin q HS and Semiglutide weekly. # H/o HTn: cont losartan , and now metoprolol, dc HCTZ. Resume nifedipine if needed DVT pX: on heparin gtt possible tx in am to health system
[2019-02-23] MEDS: ASPIRIN 81 MG CHEWABLE TABLETS PO SCH (09:26)
[2019-02-23] MEDS: metoPROLOL SUCCINATE 25 MG TAB.SR.24H (FP) PO SCH (09:26)
[2019-02-23] MEDS: LOSARTAN POTASSIUM 50 MG TABLET (FP) PO SCH (09:26)
[2019-02-23] MEDS: CLOPIDOGREL BISULFATE 75 MG TABLET (FP) PO SCH (09:26)
--- NOTE | 2019-02-23 09:39 | PN ---
Progress Note, Physician History of Present Illness: 58 yo M PMH HTN, HLD, IDDM, presenting with chest pain. Patient reports sternal pressure first at 0930, but only lasted 30 seconds initially. However, patient then climbed two flights of stairs to his house and had return of pain. Pain has been worsening through the day, now is radiating into L arm and jaw, 09/27. Patient never felt this type of pain before. No history of CT or stroke in the past. Specifically denies SOB, N/V, diaphoresis. He is on Axempic weekly injection for DM, as well as insulin. Seveal years ago, he contemplated gastric bypass surgery; eventually, he lost 25 lbs on his own without the procedure. He walks several blocks most days at a moderate pace, and walks a few flights of stairs daily. He had had not chest heaviness or pain until this weekend. His dod had Thursday. On Thursday, he felt depressed. Wlaking up the stairs at home, he had mild central chest heaviness that caused him to sit down after one fligth; it went away after a few minutes. It recurred in the afternoon while climbing stairs, then became moderately severe that night while again gong upstairs, with extension to the jaw and left arm; the pain did not go awasy when he rested, and he then was driven by his the the hospital. 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 - Current Medication List Current Medications: Active Medications Aspirin (Asa -) 81 mg PO DAILY [facility] Last Admin: 02/23/19 09:26 Dose: 81 mg Atorvastatin Calcium (Lipitor -) 80 mg PO HS [facility] Last Admin: 02/22/19 22:35 Dose: 80 mg Clopidogrel Bisulfate (Plavix -) 75 mg PO DAILY [facility] Last Admin: 02/23/19 09:26 Dose: 75 mg Heparin Sodium (Porcine) (Heparin -) 1,000 unit IVPUSH PRN PRN PRN Reason: Heparin Heparin Sodium (Porcine) (Heparin -) 5,000 unit IVPUSH PRN PRN PRN Reason: Heparin Heparin Sodium (Porcine) 25, (000 unit/ Sodium Chloride) 500 mls @ 20 mls/hr IV TITR [facility]; Protocol Last Titration: 02/22/19 16:00 Dose: 950 unit/hr, 19 mls/hr Insulin Aspart (Novolog Vial Sliding Scale -) 1 vial SQ ACHS [facility]; Protocol Last Admin: 02/23/19 06:16 Dose: Not Given Losartan Potassium (Cozaar -) 100 mg PO DAILY [facility] Last Admin: 02/23/19 09:26 Dose: 100 mg Metoprolol Succinate (Toprol Xl -) 25 mg PO BID [facility] Last Admin: 02/23/19 09:26 Dose: 25 mg - Objective Vital Signs: Vital Signs Temperature 98 F 02/23/19 05:56 Pulse Rate 60 02/23/19 05:56 Respiratory Rate 20 02/23/19 09:38 Blood Pressure 153/99 02/23/19 05:56 O2 Sat by Pulse Oximetry (%) 96 02/23/19 08:06 Eyes: Yes: WNL, Conjunctiva Clear, EOM Intact HENT: Yes: WNL, Atraumatic, Normocephalic Neck: Yes: WNL, Supple, Trachea Midline Cardiovascular: Yes: WNL, Regular Rate and Rhythm Respiratory: Yes: WNL, Regular, CTA Bilaterally Gastrointestinal: Yes: WNL, Normal Bowel Sounds Genitourinary: Yes: WNL Musculoskeletal: Yes: WNL Extremities: Yes: WNL Edema: No Integumentary: Yes: WNL Neurological: Yes: WNL, Alert, Oriented ...Motor Strength: WNL Psychiatric: Yes: WNL Labs: CBC, BMP 02/23/19 06:05 02/23/19 06:05 INR, PTT INR 1.09 (0.83-1.09) 02/22/19 00:30 Assessment/Plan - Problems (1) NSTEMI (non-ST elevated myocardial infarction) Assessment/Plan: TNI 0.02-->1.2. EKG: sinus tachycardia. Telemetry: NSR; rare PVCs. Plan: Agree with metoprolol ACEI (or ARB), ASA, high dose atorvastatin (80 mg daily); IV heparin. Pt had been on meloxicam; was told to avoid all non-aspirin NSAIDs. Ideally start an SGLP-2 inhibitor for DM (e.g. Jardience). Follow EKG and TNI serally. ECHO nl ef and wall motions Keep K>3.5--4.5 Keep Mg 2.0-2.4 Keep PO4 2.5-4.9. will need c. cath (2) Diabetes Assessment/Plan: start SGLP 2 inhibitor. On ARB. Code(s): E11.9 - TYPE 2 DIABETES MELLITUS WITHOUT COMPLICATIONS (3) Hyperlipidemia Code(s): E78.5 - HYPERLIPIDEMIA, UNSPECIFIED (4) Hypertension Code(s): I10 - ESSENTIAL (PRIMARY) HYPERTENSION (5) Obese Code(s): E66.9 - OBESITY, UNSPECIFIED
[2019-02-23 09:53] LABS: ANISOCYTOSIS 0; MACROCYTOSIS 0; PLATELET ESTIMATE NORMAL
[2019-02-23] MEDS: HEPARIN - 25,000 UNIT in SODIUM CHLORIDE 495 ML IV SCH (11:31)
--- NOTE | 2019-02-23 15:35 | PN ---
Physical Exam: SUBJECTIVE: Patient seen and examined in the morning. No acute events overnight. Patient has no complaints of chest pain, no shortness of breath, no abdominal pain, no nausea /vomiting/ diarrhea, no fever, no chills. OBJECTIVE: Vital Signs Period Temp Pulse Resp BP Sys/Medel Pulse Ox Last 24 Hr 97.9 F-98.4 F 57-74 18-20 136-161/60-100 95-96 GENERAL: The patient is awake, alert, and fully oriented, in no acute distress. HEAD: Normal with no signs of trauma. EYES: PERRL, extraocular movements intact, sclera anicteric, conjunctiva clear. No ptosis. ENT: Moist mucous membranes. NECK: Trachea midline, full range of motion, supple. LUNGS: Breath sounds equal, clear to auscultation bilaterally, no wheezes. HEART: Regular rate and rhythm, S1, S2 without murmur, rub or gallop. ABDOMEN: Soft, nontender, nondistended, normoactive bowel sounds, no guarding, no rebound. EXTREMITIES: 2+ pulses in upper and lower extremities, warm, well-perfused, no edema. NEUROLOGICAL: Cranial nerves II through XII grossly intact. Normal speech Laboratory Results - last 24 hr Active Medications Generic Name Dose Route Start Last Admin Trade Name Freq PRN Reason Stop Dose Admin Aspirin 81 mg 02/22/19 10:00 02/23/19 09:26 Asa - PO 81 mg DAILY [facility] Administration Atorvastatin Calcium 80 mg 02/22/19 22:00 02/22/19 22:35 Lipitor - PO 80 mg HS [facility] Administration Clopidogrel Bisulfate 75 mg 02/22/19 10:00 02/23/19 09:26 Plavix - PO 75 mg DAILY [facility] Administration Heparin Sodium (Porcine) 1,000 unit 02/22/19 07:44 Heparin - IVPUSH PRN PRN Heparin Heparin Sodium (Porcine) 5,000 unit 02/22/19 07:44 Heparin - IVPUSH PRN PRN Heparin Heparin Sodium (Porcine) 25, 500 mls @ 20 mls/hr 02/22/19 08:30 02/23/19 11: 31 000 unit/ Sodium Chloride IV 950 unit/hr TITR [facility] 19 mls/hr Administration Protocol 1,000 UNIT/HR Insulin Aspart 1 vial 02/22/19 07:00 02/23/19 11:30 Novolog Vial Sliding Scale - SQ 2 units ACHS [facility] Administration Protocol Losartan Potassium 100 mg 02/22/19 10:00 02/23/19 09:26 Cozaar - PO 100 mg DAILY [facility] Administration Metoprolol Succinate 25 mg 02/22/19 10:00 02/23/19 09:26 Toprol Xl - PO 25 mg BID [facility] Administration ASSESSMENT/PLAN: 58 M with PMH of HTN, DM Type 2, HLD, presenting with NSTEMI 1) NSTEMI -Troponin of 1.91 @ 5:20. Peaked at 8.57. Last troponin was 3.96 -Patient started on Heparin drip. PTT= 59.1 -Plavix 75 mg PO Qdaily -Metoprolol 25 mg PO BID -Losartan 100 mg PO Daily -ASA 81 mg PO Daily -F/U Echo -No stress test, possible catherization -Continue telemetry monitoring. -Cardiology consulted, appreciate recs. Will transfer for Cath tomorrow. 2) Leukocytosis -Patient's admission CBC showed WBC of 13, repeat showed 10. -No source of infection, patient afebrile and not complaining of any symptoms. Will continue to monitor 3)DM -Patient's last HbA1c was 7.4. -Sliding Scale Insulin 4)HLD -Atorvastatin 80 mg PO HS F: No fluids E: Monitor BMP N: Low fat/sodium/diabetic diet DVT Prophylaxis: Patient on Heparin Drip Dispo: Admitted to telemetry. Transfer tomorrow. Visit type - Emergency Visit Emergency Visit: Yes ED Registration Date: 02/22/19 Care time: The patient presented to the Emergency Department on the above date and was hospitalized for further evaluation of their emergent condition. - New Patient This patient is new to me today: No - Critical Care Critical Care patient: No ATTENDING PHYSICIAN STATEMENT I saw and evaluated the patient. I reviewed the resident's note and discussed the case with the resident. I agree with the resident's findings and plan as documented. SUBJECTIVE: OBJECTIVE: ASSESSMENT AND PLAN:
[2019-02-23] MEDS: amLODIPine BESYLATE 5 MG TABLET (FP) PO SCH (22:07)
[2019-02-23] MEDS: ATORVASTATIN CA 40 MG TABLET (FP) PO SCH (22:09)
[2019-02-24] MEDS: INSULIN SLIDING SCALE (NOVOLOG) 1 VIAL SQ SCH ×2 (06:49→12:54)
[2019-02-24 07:41] LABS: BASO % 0.6 % (0-2.0); EOS % 0.4 % (0-4.5); HEMATOCRIT 36.3 % (35.4-49); HEMOGLOBIN 12.1 GM/dL (11.7-16.9); LYMPH % 47.2 % (8-40); MCH 27.7 pg (25.7-33.7); MCHC 33.4 g/dl (32.0-35.9); MEAN CELL VOLUME 82.9 fl (80-96); MEAN PLT VOLUME 8.4 fl (7.5-11.1); MONO % 6.2 % (3.8-10.2); NEUT % 45.6 % (42.8-82.8); PLATELET COUNT 260 K/MM3 (134-434); RBC 4.38 M/mm3 (4.00-5.60); RDW 14.3 % (11.9-15.9); WHITE BLOOD COUNT 9.1 K/mm3 (4.0-10.0)
[2019-02-24 08:11] LABS: BLOOD UREA NITROGEN 13.4 mg/dL (7-18); CALCIUM 8.7 mg/dL (8.5-10.1); CREATININE 0.9 mg/dL (0.55-1.3); POTASSIUM 3.8 mmol/L (3.5-5.1)
[2019-02-24] MEDS: LOSARTAN POTASSIUM 50 MG TABLET (FP) PO SCH (09:24)
[2019-02-24] MEDS: ASPIRIN 81 MG CHEWABLE TABLETS PO SCH (09:24)
[2019-02-24] MEDS: amLODIPine BESYLATE 5 MG TABLET (FP) PO SCH (09:24)
[2019-02-24] MEDS ORDERED: CLOPIDOGREL BISULFATE 300 MG TABLET PO ONE (09:25)
[2019-02-24] MEDS: CLOPIDOGREL BISULFATE 75 MG TABLET (FP) PO SCH (09:25)
[2019-02-24] MEDS: HEPARIN - 25,000 UNIT in SODIUM CHLORIDE 495 ML IV SCH (09:25)
--- NOTE | 2019-02-24 09:37 | PN ---
Progress Note, Physician Chief Complaint: Pt A&Ox3; asymptomatic. History of Present Illness: 58 yo M PMH HTN, HLD, IDDM, presenting with chest pain. Patient reports sternal pressure first at 0930, but only lasted 30 seconds initially. However, patient then climbed two flights of stairs to his house and had return of pain. Pain has been worsening through the day, now is radiating into L arm and jaw, 09/27. Patient never felt this type of pain before. No history of ND or stroke in the past. Specifically denies SOB, N/V, diaphoresis. He is on Axempic weekly injection for DM, as well as insulin. Seveal years ago, he contemplated gastric bypass surgery; eventually, he lost 25 lbs on his own without the procedure. He walks several blocks most days at a moderate pace, and walks a few flights of stairs daily. He had had not chest heaviness or pain until this weekend. His dod had Thursday. On Thursday, he felt depressed. Wlaking up the stairs at home, he had mild central chest heaviness that caused him to sit down after one fligth; it went away after a few minutes. It recurred in the afternoon while climbing stairs, then became moderately severe that night while again gong upstairs, with extension to the jaw and left arm; the pain did not go awasy when he rested, and he then was driven by his the the hospital. 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 - Current Medication List Current Medications: Active Medications Amlodipine Besylate (Norvasc -) 5 mg PO DAILY [facility] Last Admin: 02/24/19 09:24 Dose: 5 mg Aspirin (Asa -) 81 mg PO DAILY [facility] Last Admin: 02/24/19 09:24 Dose: 81 mg Atorvastatin Calcium (Lipitor -) 80 mg PO HS [facility] Last Admin: 02/23/19 22:09 Dose: 80 mg Clopidogrel Bisulfate (Plavix -) 600 mg PO ONCE ONE Stop: 02/24/19 09:26 Clopidogrel Bisulfate (Plavix -) 75 mg PO DAILY [facility] Heparin Sodium (Porcine) (Heparin -) 1,000 unit IVPUSH PRN PRN PRN Reason: Heparin Heparin Sodium (Porcine) (Heparin -) 5,000 unit IVPUSH PRN PRN PRN Reason: Heparin Heparin Sodium (Porcine) 25, (000 unit/ Sodium Chloride) 500 mls @ 20 mls/hr IV TITR [facility]; Protocol Last Admin: 02/24/19 09:25 Dose: Not Given Insulin Aspart (Novolog Vial Sliding Scale -) 1 vial SQ ACHS [facility]; Protocol Last Admin: 02/24/19 06:49 Dose: Not Given Losartan Potassium (Cozaar -) 100 mg PO DAILY [facility] Last Admin: 02/24/19 09:24 Dose: 100 mg Metoprolol Succinate (Toprol Xl -) 25 mg PO DAILY [facility] Last Admin: 02/24/19 09:24 Dose: 25 mg - Objective Vital Signs: Vital Signs Temperature 98.5 F 02/24/19 06:02 Pulse Rate 64 02/24/19 06:02 Respiratory Rate 20 02/24/19 06:02 Blood Pressure 159/96 02/24/19 06:02 O2 Sat by Pulse Oximetry (%) 97 02/23/19 21:00 Constitutional: Yes: Calm Eyes: Yes: WNL HENT: Yes: WNL Neck: Yes: WNL Cardiovascular: Yes: S1, S2, S4 Respiratory: Yes: WNL Gastrointestinal: Yes: WNL ...Rectal Exam: Yes: Deferred Genitourinary: Yes: WNL Breast(s): Yes: WNL Musculoskeletal: Yes: WNL Extremities: Yes: WNL Edema: No Peripheral Pulses WNL: Yes Integumentary: Yes: WNL Neurological: Yes: WNL ...Motor Strength: WNL Psychiatric: Yes: WNL Labs: CBC, BMP 02/24/19 05:55 02/24/19 05:55 INR, PTT INR 1.09 (0.83-1.09) 02/22/19 00:30 Abnormal Lab Results 02/23/19 02/24/19 02/24/19 20:50 05:55 05:55 Lymphocytes % 47.2 H PTT (Actin FS) 52.0 H Anion Gap Random Glucose Troponin I 2.83 H* 02/24/19 05:55 Lymphocytes % PTT (Actin FS) Anion Gap 3 L Random Glucose 149 H Troponin I - ....Imaging Chest X-ray: Image Reviewed EKG: Image Reviewed Problem List - Problems (1) NSTEMI (non-ST elevated myocardial infarction) Assessment/Plan: TNI 0.02-->1.2. EKG: sinus tachycardia initially; now NSR with ?LVH. Telemetry: NSR; rare PVCs. Plan: Agree with metoprolol, losartan, ASA, clopidogrel (600 mg given today in preparation for angiogram and possible PCI), high dose atorvastatin (80 mg daily ); IV heparin. Pt had been on meloxicam; was told to avoid all non-aspirin NSAIDs. Ideally start an SGLP-2 inhibitor for DM (e.g. Jardience). ECHO: normal LVEF; mild LVH; moderate LAE; mild MR. Pt will be transferred to [facility] today for coronary angiogram. Will f/u in office; agrees to start cardiac rehabilitation as outpatient. Code(s): I21.4 - NON-ST ELEVATION (NSTEMI) MYOCARDIAL INFARCTION (2) Diabetes Assessment/Plan: start SGLP 2 inhibitor. On ARB. Code(s): E11.9 - TYPE 2 DIABETES MELLITUS WITHOUT COMPLICATIONS (3) Hyperlipidemia Assessment/Plan: atorvastatin 80 mg daily. Code(s): E78.5 - HYPERLIPIDEMIA, UNSPECIFIED (4) Hypertension Assessment/Plan: on metoprolol and losartan. Started amlodipine (pt had been on nifedipine). Add hydralazine + Imdur. Code(s): I10 - ESSENTIAL (PRIMARY) HYPERTENSION (5) Obese Assessment/Plan: pt lost 25 lbs through more careful diet over the past few years. Code(s): E66.9 - OBESITY, UNSPECIFIED
--- NOTE | 2019-02-24 09:51 | PN ---
Teaching Attending Note Name of Resident: Leland Garcia ATTENDING PHYSICIAN STATEMENT I saw and evaluated the patient. I reviewed the resident's note and discussed the case with the resident. I agree with the resident's findings and plan as documented. 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 Vital Signs Temperature 98.5 F 02/24/19 06:02 Pulse Rate 64 02/24/19 06:02 Respiratory Rate 20 02/24/19 06:02 Blood Pressure 159/96 02/24/19 06:02 O2 Sat by Pulse Oximetry (%) 97 02/23/19 21:00 ENERAL: The patient is awake, alert, and fully oriented, in no acute distress. HEAD: Normal with no signs of trauma. EYES: PERRL, extraocular movements intact, sclera anicteric, conjunctiva clear. ENT: Ears normal, oropharynx clear without exudates, moist mucous membranes. NECK: Trachea midline, full range of motion, supple. LUNGS: Breath sounds equal, clear to auscultation bilaterally, no wheezes, no crackles, no accessory muscle use. HEART: Regular rate and rhythm, S1, S2 without murmur, rub or gallop. ABDOMEN: Soft, NT, ND, normoactive bowel sounds, no guarding, no rebound, no hepatosplenomegaly, no masses. EXTREMITIES: 2+ pulses, warm, well-perfused, no edema. NEUROLOGICAL: Cranial nerves II through XII grossly intact. Normal speech, gait is stable. PSYCH: Normal mood, normal affect. SKIN: Warm, dry, normal turgor, no rashes or lesions noted CBCD WBC 9.1 K/mm3 (4.0-10.0) 02/24/19 05:55 RBC 4.38 M/mm3 (4.00-5.60) 02/24/19 05:55 Hgb 12.1 GM/dL (11.7-16.9) 02/24/19 05:55 Hct 36.3 % (35.4-49) 02/24/19 05:55 MCV 82.9 fl (80-96) 02/24/19 05:55 MCHC 33.4 g/dl (32.0-35.9) 02/24/19 05:55 RDW 14.3 % (11.9-15.9) 02/24/19 05:55 Plt Count 260 K/MM3 (134-434) 02/24/19 05:55 MPV 8.4 fl (7.5-11.1) 02/24/19 05:55 CMP Sodium 139 mmol/L (136-145) 02/24/19 05:55 Potassium 3.8 mmol/L (3.5-5.1) 02/24/19 05:55 Chloride 106 mmol/L (98-107) 02/24/19 05:55 Carbon Dioxide 31 mmol/L (21-32) 02/24/19 05:55 Anion Gap 3 MMOL/L (8-16) L 02/24/19 05:55 BUN 13.4 mg/dL (7-18) 02/24/19 05:55 Creatinine 0.9 mg/dL (0.55-1.3) 02/24/19 05:55 Random Glucose 149 mg/dL (74-106) H 02/24/19 05:55 Calcium 8.7 mg/dL (8.5-10.1) 02/24/19 05:55 Total Bilirubin 0.4 mg/dL (0.2-1) 02/23/19 06:05 AST 26 U/L (15-37) 02/23/19 06:05 ALT 35 U/L (13-61) 02/23/19 06:05 Alkaline Phosphatase 77 U/L (45-117) 02/23/19 06:05 Total Protein 7.2 g/dl (6.4-8.2) 02/23/19 06:05 Albumin 3.5 g/dl (3.4-5.0) 02/23/19 06:05 CARDIAC ENZYMES Creatine Kinase 57 U/L (26-308) 02/23/19 20:50 Troponin I 2.83 ng/ml (0.00-0.05) H* 02/23/19 20:50 Current Medications Generic Name Dose Route Start Last Admin Trade Name Freq PRN Reason Stop Dose Admin Amlodipine Besylate 5 mg 02/23/19 21:30 02/24/19 09:24 Norvasc - PO 5 mg DAILY OPAL Administration Aspirin 81 mg 02/22/19 10:00 02/24/19 09:24 Asa - PO 81 mg DAILY OPAL Administration Atorvastatin Calcium 80 mg 02/22/19 22:00 02/23/19 22:09 Lipitor - PO 80 mg HS OPAL Administration Clopidogrel Bisulfate 600 mg 02/24/19 09:25 Plavix - PO 02/24/19 09:26 ONCE ONE Clopidogrel Bisulfate 75 mg 02/25/19 10:00 Plavix - PO DAILY [facility] Heparin Sodium (Porcine) 1,000 unit 02/22/19 07:44 Heparin - IVPUSH PRN PRN Heparin Heparin Sodium (Porcine) 5,000 unit 02/22/19 07:44 Heparin - IVPUSH PRN PRN Heparin Heparin Sodium (Porcine) 25, 500 mls @ 20 mls/hr 02/22/19 08:30 02/24/19 09: 25 000 unit/ Sodium Chloride IV Not Given TITR [facility] Protocol 1,000 UNIT/HR Insulin Aspart 1 vial 02/22/19 07:00 02/24/19 06:49 Novolog Vial Sliding Scale - SQ Not Given ACHS [facility] Protocol Losartan Potassium 100 mg 02/22/19 10:00 02/24/19 09:24 Cozaar - PO 100 mg DAILY [facility] Administration Metoprolol Succinate 25 mg 02/24/19 10:00 02/24/19 09:24 Toprol Xl - PO 25 mg DAILY [facility] Administration Home Medications Medication Instructions Recorded Aspirin [ASA -] 81 mg PO DAILY 06/03/14 Atorvastatin Ca [Lipitor] 10 mg PO HS #30 tablet 06/05/14 Baclofen 3 tablet PO TID 02/22/19 Cyclobenzaprine HCl [Flexeril 10 1 tablet PO DAILY 02/22/19 mg] Insulin Glargine,Hum.rec.anlog 35 unit SQ HS 02/22/19 [Mahesh Marie] Losartan/Hydrochlorothiazide 1 tablet PO DAILY 02/22/19 [Losartan-Hctz 100-25 mg Tab] Meloxicam 15 mg PO DAILY 02/22/19 Metformin HCl [Glucophage] 500 mg PO BID 02/22/19 Nifedipine [Nifedipine ER] 90 mg PO DAILY 02/22/19 Semaglutide [Ozempic] 0.5 mg SQ WEEKLY 02/22/19 ASSESSMENT AND PLAN: Patient is 58 y/o gentleman with PMHx of HTN, DM , HLP, who presented with CP and was found to have NSTEMI # NSTEMI: on heparin gtt , continue Lopressor and home losartan , aspirin daily , plavix, statin . patient is getting transferred for Cath to [facility]. EKG : NO ST elevation, TW changes. L axis. deviation # H/o DM: on long acting insulin q HS and Semiglutide weekly. # H/o HTn: cont losartan , and now metoprolol, dc HCTZ. Resume nifedipine if needed DVT pX: on heparin gtt tx patient to [facility]
[2019-02-24] MEDS ORDERED: metoPROLOL SUCCINATE 25 MG TAB.SR.24H (FP) PO SCH (10:00)
--- NOTE | 2019-02-24 11:47 | EKG ---
Test Reason : Blood Pressure : / mmHG Vent. Rate : 063 BPM Atrial Rate : 063 BPM P-R Int : 178 ms QRS Dur : 088 ms QT Int : 426 ms P-R-T Axes : 035 -08 -16 degrees QTc Int : 435 ms NORMAL SINUS RHYTHM NORMAL ECG WHEN COMPARED WITH ECG OF 22-FEB-2019 12:20, NO SIGNIFICANT CHANGE WAS FOUND Confirmed by COURTNEY OSBORNE MD ([id number]) on 02/24/2019 11:47:15 AM Referred By: INES RINALDI Confirmed By:COURTNEY OSBORNE MD
[2019-02-24] MEDS ORDERED: ISOSORBIDE MONONITRATE 30 MG TAB.SR.24H (FP) PO SCH (12:00)
[2019-02-24] MEDS ORDERED: hydrALAZINE HCL 10 MG TABLET PO SCH (12:00)
[2019-02-24] MEDS ORDERED: INSULIN (NOVOLOG) ASPART 100 UNITS/ML 10ML VIAL ONE (12:53)
[2019-02-24 14:55] VITALS: BP 151/81; PULSE 64; TEMP 98.4
--- NOTE | 2019-02-24 16:06 | DS ---
Physical Exam: SUBJECTIVE: Patient seen and examined in the morning. Patient required an additional dose of 5mg of Amlodipine in order to control blood pressure overnight. No complaints of chest pain, shortness of breath, abdominal pain, nausea, vomiting, diarrhea. OBJECTIVE: Vital Signs Period Temp Pulse Resp BP Sys/Medel Pulse Ox Last 24 Hr 97.3 F-98.7 F 54-70 16-20 150-194/81-103 97-97 PHYSICAL EXAM GENERAL: The patient is awake, alert, and fully oriented, in no acute distress. HEAD: Normal with no signs of trauma. LUNGS: Breath sounds equal, clear to auscultation bilaterally, no wheezes HEART: Regular rate and rhythm, S1, S2 without murmur, rub or gallop. ABDOMEN: Soft, nontender, nondistended, normoactive bowel sounds. EXTREMITIES: 2+ pulses, warm, well-perfused, no edema. NEUROLOGICAL: Cranial nerves II through XII grossly intact. SKIN: Warm, dry, normal turgor, no rashes or lesions noted. LABS Laboratory Results - last 24 hr CBC, BMP 02/24/19 05:55 02/24/19 05:55 HOSPITAL COURSE: Date of Admission:02/22/19 Date of Discharge: 02/24/19 58 M with PMH of HTN, DM Type 2, HLD, presenting with NSTEMI. Patient had troponin of 0.02 which elevated to 1.91 subsequently, and then elevated to a max of 8.57 and then trended downwards. Patient had echo completed which showed EF of 63% and normal RV and LV. EKG was repeated after elevated troponins were resulted, however there were no changes. Patient was started on Aspirin 81 mg PO , Atorvastatin 80 mg PO, Clopidogrel 75 mg PO, Heparin drip, losartan 100 mg, and metoprolol 25 mg BID, and amlodipine 5 mg in order to control blood pressure. Cardiology was consulted and they made decision that catherization must be done, so patient was transferred to [facility]. Relevant Imaging done this stay: Echocardiogram: Mild LVH. Normal LV function. EF 63%, RV is grossly normal. RV systolic function is normal. Mitral Valve is normal. Mild Mitral regurgitation. Tricuspid valve is not well visualized, mild tricuspid regurgitation, mild to moderate left atrial enlargement. Chest X-Ray: No acute pathology. Minutes to complete discharge: 35 Discharge Summary Problems reviewed: Yes Reason For Visit: CHEST PAIN Condition: Good - Instructions Diet, Activity, Other Instructions: You were admitted to the hospital because of chest pain. While you were here we did EKGs of your heart which did not show any changes, but your heart enzymes were elevated. This showed that you had a heart attack. We gave you medications to prevent and manage the heart attack while you were in the hospital. You are being transferred to [facility] for a cardiac catherization in order to further treat your heart. Referrals: Fariba Victor [Primary Care Provider] - Disposition: TRANSFER ACUTE CARE/OTHER HOSP - Home Medications Comprehensive Discharge Medication List: Ambulatory Orders Aspirin [ASA -] 81 mg PO DAILY 06/03/14 Baclofen 3 tablet PO TID 02/22/19 Cyclobenzaprine HCl [Flexeril 10 mg] 1 tablet PO DAILY 02/22/19 Insulin Glargine,Hum.rec.anlog [Mahesh Marie] 35 unit SQ HS 02/22/19 Losartan/Hydrochlorothiazide [Losartan-Hctz 100-25 mg Tab] 1 tablet PO DAILY 09/05 Meloxicam 15 mg PO DAILY 02/22/19 Metformin HCl [Glucophage] 500 mg PO BID 02/22/19 Nifedipine [Nifedipine ER] 90 mg PO DAILY 02/22/19 Semaglutide [Ozempic] 0.5 mg SQ WEEKLY 02/22/19 This patient is new to me today: No Emergency Visit: Yes ED Registration Date: 02/22/19 Care time: The patient presented to the Emergency Department on the above date and was hospitalized for further evaluation of their emergent condition. Critical Care patient: No - Discharge Referral Referred to [facility] Med P.C.: No ATTENDING PHYSICIAN STATEMENT I saw and evaluated the patient. I reviewed the resident's note and discussed the case with the resident. I agree with the resident's findings and plan as documented. SUBJECTIVE: OBJECTIVE: ASSESSMENT AND PLAN:
[2019-02-25] MEDS ORDERED: CLOPIDOGREL BISULFATE 75 MG TABLET (FP) PO SCH (10:00)
== END 2019-02-24 14:45 | disposition short-term general hospital (02) | DRG 282 ==
LOC: JER 23:40 → JERBED 02-22 00:30 → J4W 02-22 05:10 → OBSVTOIN 02-22 15:38
PROVIDERS: ADMIT Internal Medicine; ATTEND Internal Medicine
DX: I21.4 Non-ST elevation (NSTEMI) myocardial infarction (principal); R07.9 Chest pain, unspecified; I10 Essential (primary) hypertension; E11.9 Type 2 diabetes mellitus without complications; E78.5 Hyperlipidemia, unspecified; D72.829 Elevated white blood cell count, unspecified; E66.9 Obesity, unspecified; Z68.30 Body mass index [BMI] 30.0-30.9, adult; Z79.4 Long term (current) use of insulin
CPT/HCPCS: 36415; 71045-TC-FY; 80048; 80053; 80061; 82550; 82962; 83036; 83721; 83735; 84100; 84443; 84484; 85025; 85610; 85730; 93005; 93010; 93306-TC; 99285-25; G0378; J1644

== ENCOUNTER 2021-02-21 17:33 | Observation (INO) | payer OTHER ==
[2021-02-21 20:29] LABS: BASO % 0.1 % (0-2.0); EOS % 0.2 % (0-4.5); HEMATOCRIT 40.9 % (35.4-49); HEMOGLOBIN 13.9 GM/dL (11.7-16.9); LYMPH % 26.7 % (8-40); MCH 28.1 pg (25.7-33.7); MCHC 33.9 g/dl (32.0-35.9); MEAN CELL VOLUME 82.9 fl (80-96); MEAN PLT VOLUME 8.4 fl (7.5-11.1); PLATELET COUNT 237 10^3/uL (134-434); RBC 4.93 M/mm3 (4.00-5.60); RDW 14.3 % (11.9-15.9)
[2021-02-21 20:36] LABS: INR 1.06 (0.83-1.09); PROTHROMBIN TIME (PATIENT) 11.9 SEC (9.7-13.0)
[2021-02-21 20:55] LABS: CHLORIDE 106 mmol/L (98-107); SODIUM 141 mmol/L (136-145)
[2021-02-21 20:57] LABS: ALBUMIN 3.8 g/dl (3.4-5.0); ANION GAP 6 MMOL/L (8-16); BLOOD UREA NITROGEN 14.6 mg/dL (7-18); CALCIUM 8.9 mg/dL (8.5-10.1); CO2 30 mmol/L (21-32); GLUCOSE,RANDOM 131 mg/dL (74-106); MAGNESIUM 2.4 mg/dL (1.8-2.4)
[2021-02-21 21:00] LABS: CREATININE 0.8 mg/dL (0.55-1.3); PHOSPHOROUS 3.8 mg/dL (2.5-4.9); SGOT/AST 31 U/L (15-37); SGPT/ALT 52 U/L (13-61)
[2021-02-21 21:02] LABS: BILIRUBIN,TOTAL 0.4 mg/dL (0.2-1); TOT PROT 7.4 g/dl (6.4-8.2)
[2021-02-21 21:03] LABS: ALK PHOS 119 U/L (45-117)
[2021-02-22 01:22] VITALS: BMI 26.4
[2021-02-22] MEDS: BACLOFEN 10 MG TABLET (FP) PO SCH ×2 (05:59→13:24)
[2021-02-22] MEDS: CARBIDOPA/LEVODOPA 25/100 TABLET (FP) PO SCH ×2 (05:59→13:53)
[2021-02-22] MEDS: INSULIN SLIDING SCALE (NOVOLOG) 1 VIAL SQ SCH ×2 (05:59→11:03)
[2021-02-22 07:22] LABS: HEMATOCRIT 40.1 % (35.4-49); HEMOGLOBIN 13.6 GM/dL (11.7-16.9); MCH 28.1 pg (25.7-33.7); MEAN CELL VOLUME 82.7 fl (80-96); MEAN PLT VOLUME 8.2 fl (7.5-11.1); PLATELET COUNT 207 10^3/uL (134-434); RBC 4.85 M/mm3 (4.00-5.60); RDW 14.5 % (11.9-15.9); WHITE BLOOD COUNT 8.8 K/mm3 (4.0-10.0)
[2021-02-22 07:28] LABS: INR 1.13 (0.83-1.09); PROTHROMBIN TIME (PATIENT) 12.7 SEC (9.7-13.0)
[2021-02-22 07:50] LABS: ALBUMIN 3.8 g/dl (3.4-5.0); BLOOD UREA NITROGEN 11.6 mg/dL (7-18); CALCIUM 8.9 mg/dL (8.5-10.1)
[2021-02-22 07:52] LABS: MAGNESIUM 2.4 mg/dL (1.8-2.4)
[2021-02-22 07:54] LABS: CREATININE 0.7 mg/dL (0.55-1.3); PHOSPHOROUS 3.6 mg/dL (2.5-4.9)
[2021-02-22 07:55] LABS: BILIRUBIN,TOTAL 0.7 mg/dL (0.2-1); TOT PROT 7.4 g/dl (6.4-8.2)
[2021-02-22] MEDS ORDERED: ENOXAPARIN NA (PORCINE) 40 MG/0.4 ML DISP.SYRIN SQ SCH (10:00)
[2021-02-22] MEDS ORDERED: POLYETHYLENE GLYCOL (HEALTHYLAX) 3350 17 GM PACKET PO SCH (10:00)
[2021-02-22] MEDS ORDERED: metoPROLOL SUCCINATE 25 MG TAB.SR.24H (FP) PO SCH (10:00)
[2021-02-22] MEDS ORDERED: LOSARTAN POTASSIUM 50 MG TABLET PO SCH (10:00)
[2021-02-22] MEDS ORDERED: ASPIRIN 81 MG CHEWABLE TABLETS PO SCH (10:00)
[2021-02-22] MEDS ORDERED: ISOSORBIDE MONONITRATE 30 MG TAB.SR.24H (FP) PO SCH (10:00)
[2021-02-22] MEDS ORDERED: amLODIPine BESYLATE 5 MG TABLET (FP) PO SCH (10:00)
[2021-02-22 10:59] VITALS: BP 140/80; PULSE 65; TEMP 98
[2021-02-22] MEDS ORDERED: ATORVASTATIN CA 40 MG TABLET (FP) PO SCH (22:00)
== END 2021-02-22 16:31 | disposition home or self-care (01) ==
LOC: JER 17:33 → JERBED 21:49 → J4W 02-22 01:06
PROVIDERS: ADMIT Internal Medicine; ATTEND Internal Medicine
PROC: 3E023GC Introduction of Other Therapeutic Substance into Muscle, Percutaneous Approach (ICD-10-PCS; principal; 2021-02-21)
DX: I25.10 Atherosclerotic heart disease of native coronary artery without angina pectoris (principal); I10 Essential (primary) hypertension; E78.5 Hyperlipidemia, unspecified; G20 Parkinson's disease; E11.9 Type 2 diabetes mellitus without complications; I11.9 Hypertensive heart disease without heart failure; I21.3 ST elevation (STEMI) myocardial infarction of unspecified site; Z29.9 Encounter for prophylactic measures, unspecified
CPT/HCPCS: 36415; 71046-TC-FY; 80053; 80061; 82550; 83735; 84100; 84443; 84484; 85025; 85027; 85610; 85730; 93005; 93010; 96372; 99285-25; C9803; G0378; J0475; U0003; U0005

== ENCOUNTER 2024-04-28 04:57 | Day surgery (SDC) | payer OTHER ==
[2024-04-27 08:57] VITALS: BMI 23.6
[2024-04-28 08:25] VITALS: TEMP 97.6
[2024-04-28 09:03] VITALS: BP 170/90; PULSE 64; RESP 18
== END 2024-04-28 09:18 | disposition home or self-care (01) ==
LOC: JASU-ENDO 04:57
PROVIDERS: ATTEND Internal Medicine Gastroenterology
PROC: 0DB68ZX Excision of Stomach, Via Natural or Artificial Opening Endoscopic, Diagnostic (ICD-10-PCS; 2024-04-28)
PROC: 0DJD8ZZ Inspection of Lower Intestinal Tract, Via Natural or Artificial Opening Endoscopic (ICD-10-PCS; principal; 2024-04-28 07:30)
DX: D50.9 Iron deficiency anemia, unspecified (principal)
CPT/HCPCS: 82962; 88305-TC; 88342-TC